=== PATIENT | female | born 1955 | race Caucasian/White ===

== ENCOUNTER → 2016-09-21 | Outpatient (CLI) | payer OTHER ==
[~2016-09-21] MED LIST: ACET65TA; CALCCHW12; LISI5TAB; METF750T; MULTIVIT; [UNRECOGNIZED DRUG - OTHER]
--- NOTE | 2016-09-21 16:23 | REPMRS ---
Patient History The patient states she has not had a clinical breast exam in over a year. Patient is postmenopausal and is nulliparous. Family history of ovarian cancer in mother under age 50, colorectal cancer in maternal aunt at age 90, breast cancer in maternal cousin at age 50 or over, breast cancer in paternal cousin at age 50 or over, and unknown cancer in maternal cousin. Digital Woman Screen Mammo: September 21, 2016 - Exam #: [id number] Bilateral CC and MLO view(s) were taken. Technologist: Anjel Hamptonologist Prior study comparison: August 20, 2015, digital woman screen mammo performed at [facility]. August 19, 2014, digital woman screen mammo performed at [facility]. August 18, 2013, bilateral bilat screen digital mammo, performed at [facility] ([facility] FINDINGS: There are scattered fibroglandular densities. There has been no change in the appearance of the mammogram from the prior studies. There is a pacemaker power plant projecting over the left axilla on the MLO view. There is a mild amount of scattered fibroglandular density which is fairly symmetric. There is no interval development of dominant mass, architectural distortion, or clustered microcalcification suggestive of malignancy. ASSESSMENT: BI-RADS/ACR category 2 mammogram. Benign finding(s). Recommendation Routine screening mammogram in 1 year (for women over age 40). This mammogram was interpreted with the aid of an FDA-approved computer-aided dectection system. Electronically Signed By: Saul Dorman MD 09/21/16 5513
== END ==
LOC: M WHC 14:46
PROVIDERS: ATTEND Obstetrics & Gynecology
DX: Z12.31 Encounter for screening mammogram for malignant neoplasm of breast (principal)

== ENCOUNTER → 2017-10-02 | Outpatient (REF) | payer OTHER ==
[2017-10-02 14:20] LABS: FREE T3 2.5 PG/ML (2.2-4.0)
[2017-10-02 14:24] LABS: CORTISOL AM 8.3 UG/DL (4.3-22.4)
[2017-10-03 10:03] LABS: THYROGLOBULIN ANTIBODY 68.3 U/ML (<60.0); THYROID PEROXIDASE ANTIBODY > 1300.0 U/ML (<60.0)
== END ==
LOC: M LAB REF 13:37
DX: E03.9 Hypothyroidism, unspecified (principal)

== ENCOUNTER → 2017-10-08 | Outpatient (CLI) | payer OTHER | LOC: M WHC 12:59 | DX: Z12.31 Encounter for screening mammogram for malignant neoplasm of breast (principal) | CPT/HCPCS: 77067 ==

== ENCOUNTER → 2018-01-02 | Outpatient (REF) | payer OTHER | LOC: M LAB REF 17:30 | DX: E03.9 Hypothyroidism, unspecified (principal) ==

== ENCOUNTER → 2018-10-22 | Outpatient (CLI) | payer OTHER ==
--- NOTE | 2018-10-22 11:23 | REPMRS ---
Patient History The patient states she had a clinical breast exam in 10/2018. Patient is postmenopausal and is nulliparous. Family history of breast cancer at age 50 or over in maternal cousin, breast cancer at age 50 or over in paternal cousin, ovarian cancer under age 50 in mother, colorectal cancer at age 90 in maternal aunt, breast cancer under age 50 in maternal cousin, breast cancer under age 50 in maternal cousin. No Hormone Replacement Therapy Digital Woman Screen Mammo: October 22, 2018 - Exam #: [id number] Bilateral CC and MLO view(s) were taken. Technologist: Barbara Valiente, Technologist Prior study comparison: October 08, 2017, digital woman screen mammo performed at [facility]. September 21, 2016, digital woman screen mammo performed at [facility]. FINDINGS: There are scattered fibroglandular densities. There has been no change in the appearance of the mammogram from the prior studies. There is a mild amount of scattered fibroglandular density which is fairly symmetric. There is no interval development of dominant mass, architectural distortion, or clustered microcalcification suggestive of malignancy. 3-D tomosynthesis shows no additional findings. Assessment: BI-RADS/ACR category 1 mammogram. Negative Mammogram. Recommendation Routine screening mammogram of both breasts in 1 year (for women over age 40). This patient's Lifetime Breast Cancer RIsk is estimated at 16.5 %. This mammogram was interpreted with the aid of an FDA-approved computer-aided dectection system. Electronically Signed By: Saul Dorman MD 10/22/18 [id number]
== END ==
LOC: M WHC 09:00
PROVIDERS: ATTEND Internal Medicine
DX: Z12.31 Encounter for screening mammogram for malignant neoplasm of breast (principal)

== ENCOUNTER → 2020-04-02 | Outpatient (CLI) | payer OTHER ==
--- NOTE | 2020-04-02 14:28 | REPMRS ---
Patient History The patient states she has not had a clinical breast exam in over a year. Family history of breast cancer at age 50 or over in maternal cousin, breast cancer at age 50 or over in paternal cousin, ovarian cancer under age 50 in mother, colorectal cancer at age 90 in maternal aunt, breast cancer under age 50 in maternal cousin, breast cancer under age 50 in maternal cousin. No Hormone Replacement Therapy 3D TOMOSYNTHESIS WAS PERFORMED. [facility] lifetime risk for breast cancer is 15.9%. VOLPARA DENSITY B. Digital Woman Screen Mammo: April 02, 2020 - Exam #: [id number] Bilateral CC and MLO view(s) were taken. Technologist: Anjel Javedologist Prior study comparison: October 22, 2018, bilateral digital woman screen mammo performed at [facility]. October 08, 2017, digital woman screen mammo performed at [facility]. FINDINGS: There are scattered fibroglandular densities. There has been no change in the appearance of the mammogram from the prior studies. There is a mild amount of residual fibroglandular tissue which is fairly symmetric. There is no interval development of dominant mass, architectural distortion, or clustered microcalcification suggestive of malignancy. Assessment: BI-RADS/ACR category 1 mammogram. Negative Mammogram. Recommendation Routine screening mammogram in 1 year (for women over age 40). This mammogram was interpreted with the aid of an FDA-approved computer-aided dectection system. Electronically Signed By: Kenan Storm MD 04/02/20 [id number]
== END ==
LOC: M WHC 11:22
PROVIDERS: ATTEND Internal Medicine
DX: Z12.31 Encounter for screening mammogram for malignant neoplasm of breast (principal); Z80.3 Family history of malignant neoplasm of breast; Z80.41 Family history of malignant neoplasm of ovary; Z80.0 Family history of malignant neoplasm of digestive organs

== ENCOUNTER → 2021-06-10 | Outpatient (CLI) | payer OTHER ==
--- NOTE | 2021-06-10 09:21 | REPMRS ---
Patient History The patient states she has not had a clinical breast exam in over a year. Family history of breast cancer at age 50 or over in maternal cousin, breast cancer at age 50 or over in paternal cousin, ovarian cancer under age 50 in mother, colorectal cancer at age 90 in maternal aunt, breast cancer under age 50 in maternal cousin, breast cancer under age 50 in maternal cousin. No Hormone Replacement Therapy Tomosynthesis is performed. Volpara breast density is a. [facility] lifetime risk of breast cancer 14.5%. Patient states no breast complaints today. Patient has signed MRS History Sheet. Digital Woman Screen Mammo: June 10, 2021 - Exam #: [id number] Bilateral CC and MLO view(s) were taken. Technologist: Jacqueline Pardo, Technologist Prior study comparison: April 02, 2020, bilateral digital woman screen mammo performed at [facility]. October 22, 2018, bilateral digital woman screen mammo performed at [facility]. FINDINGS: There are scattered fibroglandular densities. There has been no change in the appearance of the mammogram from the prior studies. There is a mild amount of residual fibroglandular tissue which is fairly symmetric. There is no interval development of dominant mass, architectural distortion, or clustered microcalcification suggestive of malignancy. Assessment: BI-RADS/ACR category 1 mammogram. Negative Mammogram. Recommendation Routine screening mammogram in 1 year (for women over age 40). This mammogram was interpreted with the aid of an FDA-approved computer-aided dectection system. Electronically Signed By: Kenan Storm MD 06/10/21 0921
== END ==
LOC: M WHC 08:25
PROVIDERS: ATTEND Internal Medicine
DX: Z12.31 Encounter for screening mammogram for malignant neoplasm of breast (principal); Z80.3 Family history of malignant neoplasm of breast

== ENCOUNTER → 2022-06-14 | Outpatient (CLI) | payer MEDICARE, OTHER | LOC: M WHC 07:01 | PROVIDERS: ATTEND Internal Medicine | DX: Z12.31 Encounter for screening mammogram for malignant neoplasm of breast (principal) ==

== ENCOUNTER → 2023-06-26 | Outpatient (CLI) | payer MEDICARE, OTHER | LOC: M WHC 11:44 | PROVIDERS: ATTEND Internal Medicine | DX: Z12.31 Encounter for screening mammogram for malignant neoplasm of breast (principal) ==

== ENCOUNTER 2023-09-24 12:20 | Day surgery (SDC) | payer MEDICARE, OTHER ==
[~2023-09-24] VITALS: Ht 168.9 cm; Wt 98.9 kg
[~2023-09-24 12:20] MED LIST changes: +BETA300T PO; +CURC500C PO; +METF750T36 PO; +RA N1TAB PO; +SELE100T PO; +SYNT88TA2 PO; +VITA100093 PO; +ZINC50TA4 PO
[2023-09-24] MEDS ORDERED: propofoL 500 MG/50 ML VIAL As Ordered ONE (12:27)
[2023-09-24] MEDS ORDERED: fentaNYL 100 MCG/2 ML INJECTION As Ordered ONE (12:28)
[2023-09-24] MEDS: NS 1,000 ML IV ONE (12:47)
[2023-09-24 14:16] VITALS: TEMP 97.5
[2023-09-24 14:34] VITALS: BP 147/66; O2SAT 98
== END 2023-09-24 14:53 | disposition home or self-care (01) ==
LOC: M OPP 12:20
PROVIDERS: ATTEND Internal Medicine Gastroenterology
DX: Z12.11 Encounter for screening for malignant neoplasm of colon (principal); K64.0 First degree hemorrhoids; K57.30 Diverticulosis of large intestine without perforation or abscess without bleeding; K31.89 Other diseases of stomach and duodenum; R13.10 Dysphagia, unspecified; K90.41 Non-celiac gluten sensitivity; G47.30 Sleep apnea, unspecified; Z99.89 Dependence on other enabling machines and devices; Z79.84 Long term (current) use of oral hypoglycemic drugs; Z79.890 Hormone replacement therapy; Z79.899 Other long term (current) drug therapy
CPT/HCPCS: 43249; 88305; G0121; J3010

== ENCOUNTER 2023-10-15 11:30 | Emergency (ER) | payer MEDICARE, OTHER ==
[~2023-10-15] VITALS: Ht 167.6 cm; Wt 97.7 kg
[2023-10-15] MEDS ORDERED: ACET1TAB55 PO (11:41)
[2023-10-15 11:42] VITALS: TEMP 97.7
[2023-10-15 12:30] LABS: BASO % 0.3 % (0.0-1.0); EOS % 0.2 % (0.0-3.0); HEMATOCRIT 44.3 % (36.0-47.0); HEMOGLOBIN 14.9 g/dl (12.0-15.5); LYMPH # 0.5 10^3/uL (1.5-5.0); LYMPH % 8.4 % (24.0-44.0); MEAN CORPUSCULAR HEMOGLOBIN 30.7 pg (27.0-33.0); MEAN CORPUSCULAR HGB CONC 33.6 g/dl (32.0-36.5); MEAN CORPUSCULAR VOLUME 91.2 fl (80.0-96.0); MONO # 0.3 10^3/uL (0.0-0.8); MONO % 4.4 % (2.0-8.0); NEUTROPHILS # 5.3 10^3/uL (1.5-8.5); NEUTROPHILS % 86.4 % (36.0-66.0); PLATELET COUNT, AUTOMATED 165 10^3/uL (150-450); RED BLOOD COUNT 4.86 10^6/uL (4.00-5.40); WHITE BLOOD COUNT 6.1 10^3/uL (4.0-10.0)
[2023-10-15] MEDS ORDERED: OMEG350C PO (12:38)
[2023-10-15] MEDS ORDERED: K2 P1TAB PO (12:38)
[2023-10-15] MEDS ORDERED: ASPI81TA26 PO (12:38)
[2023-10-15] MEDS ORDERED: MAGN296S37 PO (12:38)
[2023-10-15] MEDS ORDERED: HOME MED LIST COMPLETE! XX SCH (12:40)
[2023-10-15 13:04] LABS: BLOOD UREA NITROGEN 14 MG/DL (9-23); CALCIUM LEVEL 9.3 MG/DL (8.3-10.6); CARBON DIOXIDE LEVEL 29 MMOL/L (20-31); CHLORIDE LEVEL 105 MMOL/L (98-107); CK-MB VALUE MASS 2.4 NG/ML (<3.6); CPK CREATINE PHOSPHOKINASE 201 U/L (34-145); CREATININE FOR GFR 0.67 MG/DL (0.55-1.30); FREE T4 1.48 NG/DL (0.89-1.76); GLOMERULAR FILTRATION RATE > 60.0 (>45); GLUCOSE, FASTING 157 MG/DL (74-106); MB/CK RELATIVE INDEX 1.19 (< OR =4); POTASSIUM SERUM 4.7 MMOL/L (3.5-5.1); SODIUM LEVEL 140 MMOL/L (136-145); THYROID STIMULATING HORMONE 1.188 uIU/ML (0.55-4.78)
[2023-10-15 13:42] LABS: CK-MB VALUE MASS 2.2 NG/ML (<3.6)
[2023-10-15 13:44] LABS: MB/CK RELATIVE INDEX 1.24 (< OR =4)
[2023-10-15 14:38] VITALS: BP 142/78; O2SAT 98
== END 2023-10-15 14:39 | disposition home or self-care (01) ==
LOC: M ED 11:30 → EDBD 11:30 → M ED 14:39
DX: R00.0 Tachycardia, unspecified (principal); I10 Essential (primary) hypertension; K21.9 Gastro-esophageal reflux disease without esophagitis; Z91.018 Allergy to other foods; Z79.1 Long term (current) use of non-steroidal anti-inflammatories (NSAID); Z79.84 Long term (current) use of oral hypoglycemic drugs; Z79.899 Other long term (current) drug therapy

== ENCOUNTER → 2024-05-26 | Outpatient (REF) | payer MEDICARE, OTHER ==
[~2024-05-26] MED LIST changes: +ACET1TAB55 PO; +ASPI81TA26 PO; +K2 P1TAB PO; +MAGN296S37 PO; +OMEG350C PO
== END ==
LOC: M LAB REF 12:36
PROVIDERS: ATTEND Internal Medicine
DX: E03.9 Hypothyroidism, unspecified (principal)

== ENCOUNTER → 2024-06-27 | Outpatient (CLI) | payer MEDICARE, OTHER | LOC: M WHC 09:01 | PROVIDERS: ATTEND Internal Medicine | DX: Z12.31 Encounter for screening mammogram for malignant neoplasm of breast (principal); R92.323 Mammographic fibroglandular density, bilateral breasts ==

== ENCOUNTER 2024-09-10 17:24 | Emergency (ER) | payer MEDICARE, OTHER ==
[~2024-09-10] VITALS: Ht 170.2 cm; Wt 100.0 kg
[2024-09-10 17:41] VITALS: TEMP 96.5
[2024-09-10 23:02] LABS: BASO % 0.4 % (0.0-1.0); EOS % 0.5 % (0.0-3.0); HEMATOCRIT 47.1 % (36.0-47.0); HEMOGLOBIN 15.8 g/dl (12.0-15.5); LYMPH # 1.8 10^3/uL (1.5-5.0); LYMPH % 22.2 % (24.0-44.0); MEAN CORPUSCULAR HEMOGLOBIN 30.9 pg (27.0-33.0); MEAN CORPUSCULAR HGB CONC 33.5 g/dl (32.0-36.5); MEAN CORPUSCULAR VOLUME 92.2 fl (80.0-96.0); MONO # 0.6 10^3/uL (0.0-0.8); MONO % 6.8 % (2.0-8.0); NEUTROPHILS # 5.8 10^3/uL (1.5-8.5); NEUTROPHILS % 69.7 % (36.0-66.0); PLATELET COUNT, AUTOMATED 150 10^3/uL (150-450); RED BLOOD COUNT 5.11 10^6/uL (4.00-5.40); WHITE BLOOD COUNT 8.2 10^3/uL (4.0-10.0)
[2024-09-10 23:24] LABS: LIPASE 53 U/L (12-53)
[2024-09-10 23:25] LABS: CK-MB VALUE MASS 1.6 NG/ML (<3.6)
[2024-09-10 23:27] LABS: ALBUMIN 3.9 G/DL (3.2-5.2); ALKALINE PHOSPHATASE 60 U/L (35-104); ALT/SGPT 23 U/L (7.0-40); AST/SGOT 24 U/L (<34); BILIRUBIN,DIRECT 0.2 MG/DL (<0.4); BLOOD UREA NITROGEN 17 MG/DL (9-23); CALCIUM LEVEL 9.1 MG/DL (8.3-10.6); CARBON DIOXIDE LEVEL 24 MMOL/L (20-31); CHLORIDE LEVEL 108 MMOL/L (98-107); GLOMERULAR FILTRATION RATE > 60.0 (>45); GLUCOSE, FASTING 113 MG/DL (74-106); POTASSIUM SERUM 4.1 MMOL/L (3.5-5.1); SODIUM LEVEL 142 MMOL/L (136-145); TOTAL PROTEIN 6.8 G/DL (5.7-8.2)
[2024-09-10 23:28] LABS: CPK CREATINE PHOSPHOKINASE 121 U/L (34-145); MB/CK RELATIVE INDEX 1.32 (< OR =4)
[2024-09-11 00:19] LABS: CK-MB VALUE MASS 1.9 NG/ML (<3.6); MAGNESIUM LEVEL 1.9 MG/DL (1.8-2.4)
[2024-09-11 00:21] LABS: MB/CK RELATIVE INDEX 1.62 (< OR =4)
[2024-09-11 01:31] VITALS: BP 146/67
[2024-09-11 01:45] VITALS: O2SAT 98
[2024-09-11 02:14] LABS: FREE T4 1.21 NG/DL (0.89-1.76)
[2024-09-11 02:15] LABS: THYROID STIMULATING HORMONE 10.421 uIU/ML (0.55-4.78)
== END 2024-09-11 02:08 | disposition home or self-care (01) ==
LOC: M ED 17:24
DX: R00.2 Palpitations (principal); E11.9 Type 2 diabetes mellitus without complications; I10 Essential (primary) hypertension; Z91.018 Allergy to other foods; Z79.1 Long term (current) use of non-steroidal anti-inflammatories (NSAID); Z79.84 Long term (current) use of oral hypoglycemic drugs; Z79.899 Other long term (current) drug therapy

== ENCOUNTER → 2024-10-13 | Outpatient (REF) | payer MEDICARE, OTHER ==
[2024-10-13 13:16] LABS: FREE T3 3.3 PG/ML (2.3-4.2)
== END ==
LOC: M LAB REF 12:09
PROVIDERS: ATTEND Nurse Practitioner Family
DX: E06.3 Autoimmune thyroiditis (principal)

== ENCOUNTER → 2024-11-26 | Outpatient (REF) | payer MEDICARE, OTHER | LOC: M LAB REF 14:19 | PROVIDERS: ATTEND Internal Medicine | DX: E06.3 Autoimmune thyroiditis (principal) ==

== ENCOUNTER → 2025-06-08 | Outpatient (REF) | payer MEDICARE, OTHER ==
[~2025-06-08] MED LIST changes: +ZINC50TA37 PO; -ZINC50TA4 PO
== END ==
LOC: M LAB REF 12:27
PROVIDERS: ATTEND Internal Medicine
DX: E06.3 Autoimmune thyroiditis (principal); E03.9 Hypothyroidism, unspecified

== ENCOUNTER → 2025-06-29 | Outpatient (CLI) | payer MEDICARE, OTHER | LOC: M WHC 08:54 | PROVIDERS: ATTEND Specialist | DX: M81.0 Age-related osteoporosis without current pathological fracture (principal); Z12.31 Encounter for screening mammogram for malignant neoplasm of breast ==